=== PATIENT | female | born 1985 | race African-American/Black ===

== ENCOUNTER 2019-06-10 18:19 | Inpatient (IN) | payer MEDICAID, OTHER ==
[~2019-06-10] VITALS: Ht 152.4 cm; Wt 58.7 kg
[2019-06-10] MEDS ORDERED: FAMOTIDINE 20MG/2ML VIAL IV STA (18:47)
[2019-06-10] MEDS ORDERED: SODIUM CHLORIDE 0.9% 1,000 ML IV ONE (18:47)
[2019-06-10] MEDS ORDERED: ONDANSETRON HCL 4MG/2ML INJ IV STA ×2 (18:47→20:22)
[2019-06-10] MEDS ORDERED: KETOROLAC 30MG/ML VIAL IV STA (18:47)
[2019-06-10 19:03] LABS: BASOPHILS % 1.1 % (0.0-2.0); EOSINOPHILS % 1.1 % (0.0-5.0); HEMATOCRIT. 35.2 % (36.0-48.0); HEMOGLOBIN. 11.6 g/dL (12.0-16.0); LYMPHOCYTES % 32.9 % (20.0-50.0); MEAN CORPUSCULAR VOLUME 87.7 fL (81.0-99.0); MEAN PLATELET VOLUME 7.8 fl (7.4-10.4); MONOCYTES % 8.6 % (2.0-8.0); NEUTROPHILS % 56.3 % (40.0-76.0); PLATELET 268 x1000/uL (130-400); RED BLOOD CELL COUNT 4.01 mill/uL (4.2-5.4); RED CELL DISTRIBUTION WIDTH 13.9 % (11.6-14.6)
[2019-06-10 19:12] LABS: CHLORIDE 108 mEq/L (98-107)
[2019-06-10] MEDS ORDERED: ACETAMINOPHEN 325MG TABLET PO ONE (19:15)
[2019-06-10 19:21] LABS: CLARITY URINE CLOUDY (CLEAR); COLOR URINE YELLOW (YELLOW); KETONES URINE 3+ (NEGATIVE); LEUKOCYTE ESTERASE URINE TRACE (NEGATIVE); NITRITE URINE NEGATIVE (NEGATIVE); OCCULT BLOOD URINE 2+ (NEGATIVE); PROTEIN URINE NEGATIVE (NEGATIVE); SPECIFIC GRAVITY URINE 1.015 (1.005-1.030)
[2019-06-10 19:22] LABS: ETHANOL BLOOD < 10 mg/dL
[2019-06-10 19:26] LABS: HCG SCREEN NEGATIVE
[2019-06-10 19:28] LABS: *AMPHETAMINES SCREEN URINE NEGATIVE (NEGATIVE); *BARBITURATES SCREEN URINE NEGATIVE (NEGATIVE)
[2019-06-10 19:29] LABS: *BENZODIAZEPINES SCREEN URINE NEGATIVE (NEGATIVE); *COCAINE SCREEN URINE NEGATIVE (NEGATIVE); METHADONE URINE SCREEN NEGATIVE (NEGATIVE); PHENCYCLIDINE URINE SCREEN NEGATIVE (NEGATIVE)
[2019-06-10 19:34] LABS: CANNABINOID URINE SCREEN PRESUMTIVE POSITIVE (NEGATIVE); OPIATES URINE SCREEN PRESUMTIVE POSITIVE (NEGATIVE)
[2019-06-10] MEDS ORDERED: MORPHINE SULFATE 4 MG/ML CPJ (NOT FOR IM USE) IV STA (20:22)
[2019-06-10] MEDS ORDERED: MORPHINE SULFATE 4 MG/ML CPJ (NOT FOR IM USE) IV NR (20:30)
[2019-06-10] MEDS ORDERED: CEFTRIAXONE 1 G PREMIX 50 ML IV ONE (21:00)
[2019-06-10] MEDS ORDERED: GUAIFENESIN 200MG/10ML SUGAR FREE UDC PO PRN (23:15)
[2019-06-10] MEDS ORDERED: IPRATROPIUM/ALBUTEROL 0.5-3(2.5)MG/3ML NEB INH PRN (23:15)
[2019-06-10] MEDS ORDERED: CLONIDINE 0.1MG TABLET PO PRN (23:15)
[2019-06-10] MEDS ORDERED: MAGNESIUM/ALUMINUM HYDROXIDE/SIMETHICONE 30ML UDC PO PRN (23:15)
[2019-06-10] MEDS ORDERED: DOCUSATE SODIUM 100MG CAPSULE PO PRN (23:15)
[2019-06-10] MEDS ORDERED: NA PHOS,M-B/NA PHOS,DI-BA ENEMA 118ML PR PRN (23:15)
[2019-06-10] MEDS ORDERED: DIPHENHYDRAMINE 50MG/ML VIAL IV PRN (23:15)
[2019-06-10] MEDS ORDERED: LORAZEPAM 2MG/ML CPJ IV PRN (23:15)
[2019-06-10] MEDS ORDERED: HYDRALAZINE 20MG/ML VIAL IV PRN (23:15)
[2019-06-10] MEDS ORDERED: ONDANSETRON HCL 4MG/2ML INJ IV PRN (23:15)
[2019-06-10] MEDS ORDERED: ACETAMINOPHEN 325MG TABLET PO PRN (23:15)
[2019-06-10] MEDS: MORPHINE SULFATE 2 MG/ML CPJ (NOT FOR IM USE) IV PRN (23:41)
[2019-06-11] VITALS (7 sets, daily range): BP systolic 106–132; BP diastolic 66–94
[2019-06-11] MEDS ORDERED: SODIUM CHLORIDE 0.45% 1,000 ML IV SCH (00:32)
[2019-06-11] MEDS ORDERED: HYDRALAZINE 10 MG in DEXTROSE 5% WATER 50 ML IV PRN (02:00)
[2019-06-11] MEDS: MORPHINE SULFATE 2 MG/ML CPJ (NOT FOR IM USE) IV PRN ×2 (03:58→08:15)
[2019-06-11] MEDS ORDERED: SODIUM CHLORIDE 0.9% INJ 3ML FLUSH IVF SCH (06:00)
[2019-06-11 07:19] LABS: BASOPHILS % 1.2 % (0.0-2.0); EOSINOPHILS % 2.9 % (0.0-5.0); HEMATOCRIT. 32.3 % (36.0-48.0); HEMOGLOBIN. 10.7 g/dL (12.0-16.0); MEAN CORPUSCULAR HEMOGLOBIN 29.2 pg (28.0-32.0); MEAN CORPUSCULAR VOLUME 88.1 fL (81.0-99.0); MEAN PLATELET VOLUME 8.6 fl (7.4-10.4); NEUTROPHILS % 38.9 % (40.0-76.0); PLATELET 246 x1000/uL (130-400); RED BLOOD CELL COUNT 3.66 mill/uL (4.2-5.4); RED CELL DISTRIBUTION WIDTH 14.1 % (11.6-14.6)
[2019-06-11 07:35] LABS: CHLORIDE 107 mEq/L (98-107)
[2019-06-11] MEDS ORDERED: CEFTRIAXONE 1 G PREMIX 50 ML IV SCH (22:00)
== END 2019-06-11 12:40 | disposition home or self-care (01) | DRG 724 ==
LOC: ER 18:28 → 6EST 21:30 → ENRESERV 23:25
PROVIDERS: ADMIT Internal Medicine; ATTEND Internal Medicine
DX: A59.9 Trichomoniasis, unspecified (principal); I10 Essential (primary) hypertension; N20.0 Calculus of kidney; N39.0 Urinary tract infection, site not specified; Z87.442 Personal history of urinary calculi; Z98.891 History of uterine scar from previous surgery; Z90.710 Acquired absence of both cervix and uterus
CPT/HCPCS: 36415; 74176; 76705; 80305; 80320; 81003; 84703; 96374; 96375; 99285; J0696; J1885; J2270; J2405; J3490; J7030; G0480

== ENCOUNTER 2020-03-31 01:53 | Emergency (ER) | payer MEDICAID, OTHER ==
[~2020-03-31] VITALS: Ht 157.5 cm; Wt 59.0 kg
[2020-03-31] MEDS ORDERED: ONDANSETRON HCL 4MG/2ML INJ IV STA (02:30)
[2020-03-31] MEDS ORDERED: KETOROLAC 30MG/ML VIAL IV STA (02:30)
[2020-03-31] MEDS ORDERED: SODIUM CHLORIDE 0.9% 1,000 ML IV ONE (02:30)
[2020-03-31 03:01] LABS: BASOPHILS % 0.8 % (0.0-2.0); EOSINOPHILS % 1.4 % (0.0-5.0); HEMATOCRIT. 36.6 % (36.0-48.0); HEMOGLOBIN. 12.1 g/dL (12.0-16.0); MEAN CORPUSCULAR HEMOGLOBIN 29.3 pg (28.0-32.0); MEAN CORPUSCULAR VOLUME 88.7 fL (81.0-99.0); MEAN PLATELET VOLUME 8.5 fl (7.4-10.4); MONOCYTES % 9.8 % (2.0-8.0); PLATELET 278 x1000/uL (130-400); RED BLOOD CELL COUNT 4.12 mill/uL (4.2-5.4); RED CELL DISTRIBUTION WIDTH 14.3 % (11.6-14.6)
[2020-03-31 03:13] LABS: HCG SCREEN NEGATIVE
[2020-03-31 03:15] LABS: CHLORIDE 107 mEq/L (98-107)
[2020-03-31 03:26] LABS: CLARITY URINE CLEAR (CLEAR); COLOR URINE YELLOW (YELLOW); KETONES URINE 3+ (NEGATIVE); LEUKOCYTE ESTERASE URINE NEGATIVE (NEGATIVE); NITRITE URINE NEGATIVE (NEGATIVE); OCCULT BLOOD URINE 2+ (NEGATIVE); PROTEIN URINE NEGATIVE (NEGATIVE); SPECIFIC GRAVITY URINE 1.015 (1.005-1.030)
[2020-03-31] MEDS ORDERED: MAGNESIUM/ALUMINUM HYDROXIDE/SIMETHICONE 30ML UDC PO ONE (03:30)
[2020-03-31] MEDS ORDERED: VISCOUS LIDOCAINE 2% 15 ML UDC PO ONE (03:30)
[2020-03-31 04:51] VITALS: BP 144/86
[2020-03-31 10:36] LABS: *BARBITURATES SCREEN URINE NEGATIVE (NEGATIVE); *BENZODIAZEPINES SCREEN URINE NEGATIVE (NEGATIVE); *COCAINE SCREEN URINE NEGATIVE (NEGATIVE)
[2020-03-31 10:37] LABS: *AMPHETAMINES SCREEN URINE NEGATIVE (NEGATIVE); METHADONE URINE SCREEN NEGATIVE (NEGATIVE); PHENCYCLIDINE URINE SCREEN NEGATIVE (NEGATIVE)
[2020-03-31 10:41] LABS: CANNABINOID URINE SCREEN PRESUMTIVE POSITIVE (NEGATIVE); OPIATES URINE SCREEN PRESUMTIVE POSITIVE (NEGATIVE)
== END 2020-03-31 05:09 | disposition home or self-care (01) ==
LOC: ER 01:53
DX: R10.13 Epigastric pain (principal); R11.2 Nausea with vomiting, unspecified; I10 Essential (primary) hypertension; Z98.890 Other specified postprocedural states
CPT/HCPCS: 36415; 74021; 80053; 80305; 81003; 83690; 84484; 84703; 85025; 93005; 96361; 96374; 96375; 99285; J1885; J2405; J7030

== ENCOUNTER 2020-03-31 05:37 | Emergency (ER) | payer MEDICAID ==
[~2020-03-31] VITALS: Ht 154.9 cm; Wt 59.0 kg
[2020-03-31] MEDS ORDERED: ACETAMINOPHEN 325MG TABLET PO ONE (08:30)
[2020-03-31] MEDS ORDERED: ONDANSETRON 4MG ODT PO ONE (09:15)
[2020-03-31 09:20] VITALS: BP 142/89
== END 2020-03-31 09:59 | disposition home or self-care (01) ==
LOC: ER 05:37
DX: N83.209 Unspecified ovarian cyst, unspecified side (principal); R10.13 Epigastric pain; I10 Essential (primary) hypertension; Z98.890 Other specified postprocedural states
CPT/HCPCS: 74176; 99284; Q0162

== ENCOUNTER 2020-04-01 01:50 | Emergency (ER) | payer MEDICAID ==
[~2020-04-01] VITALS: Ht 165.1 cm; Wt 59.0 kg
[2020-04-01] MEDS ORDERED: DICYCLOMINE HCL 10MG/ML 2ML AMP IM ONE (02:00)
[2020-04-01 03:16] LABS: HEMATOCRIT 35.1 % (36.0-48.0); HEMOGLOBIN 11.6 g/dL (12.0-16.0); MEAN CORPUSCULAR HEMOGLOBIN 29.3 pg (28.0-32.0); MEAN CORPUSCULAR VOLUME 88.7 fL (81.0-99.0); PLATELET 242 x1000/uL (130-400); RED BLOOD CELL COUNT 3.96 mill/uL (4.2-5.4); RED CELL DISTRIBUTION WIDTH 14.2 % (11.6-14.6)
[2020-04-01 03:41] LABS: CHLORIDE 108 mEq/L (98-107)
[2020-04-01 04:42] VITALS: BP 112/71
== END 2020-04-01 04:44 | disposition home or self-care (01) ==
LOC: ER 01:50
DX: R10.10 Upper abdominal pain, unspecified (principal); G89.29 Other chronic pain; Z76.5 Malingerer [conscious simulation]
CPT/HCPCS: 36415; 80053; 83690; 85027; 96372; 99283; J0500

== ENCOUNTER 2025-01-06 23:23 | Emergency (ER) | payer MEDICAID ==
[~2025-01-06] VITALS: Ht 165.1 cm; Wt 59.0 kg
[2025-01-06 23:27] VITALS: TEMP 37.2; O2SAT 98
[2025-01-07 00:06] LABS: CHLORIDE 107 mEq/L (98-107); POTASSIUM 4.4 mEq/L (3.5-5.1); SODIUM 141 mEq/L (136-145)
[2025-01-07 00:07] LABS: CARBON DIOXIDE 26 mEq/L (21-32)
[2025-01-07 00:08] LABS: CALCIUM 10.2 mg/dL (8.7-10.4)
[2025-01-07 00:11] LABS: PARTIAL THROMBOPLASTIN TIME 28.2 sec (23.4-31.0); PROTHROMBIN TIME 10.6 sec (9.6-11.0)
[2025-01-07 00:12] LABS: CREATININE 0.7 mg/dL (0.6-1.0); GLUCOSE 125 mg/dL (70-105); UREA NITROGEN BLOOD 10 mg/dL (9-23)
[2025-01-07] MEDS: SODIUM CHLORIDE 0.9% 1,000 ML IV ONE (00:23)
[2025-01-07] MEDS: FENTANYL CITRATE/PF 50MCG/ML 2ML VIAL IV ONE (00:23)
[2025-01-07] MEDS: ONDANSETRON HCL 4MG/2ML INJ IV ONE (00:24)
[2025-01-07 00:25] LABS: BASOPHILS % 1.2 % (0.0-2.0); EOSINOPHILS % 3.3 % (0.0-5.0); HEMATOCRIT. 44.4 % (36.0-48.0); HEMOGLOBIN. 14.4 g/dL (12.0-16.0); LYMPHOCYTES % 41.4 % (20.0-50.0); MEAN CORPUSCULAR HEMOGLOBIN 28.5 pg (28.0-32.0); MEAN CORPUSCULAR HGB CONC 32.3 g/dL (31.0-37.0); MEAN PLATELET VOLUME 8.1 fl (7.4-10.4); MONOCYTES % 8.8 % (2.0-8.0); NEUTROPHILS % 45.3 % (40.0-76.0); PLATELET 443 x1000/uL (130-400); RED BLOOD CELL COUNT 5.05 mill/uL (4.2-5.4); RED CELL DISTRIBUTION WIDTH 15.3 % (11.6-14.6); WHITE BLOOD COUNT 6.5 x1000/uL (4.5-11.0)
[2025-01-07] MEDS: MORPHINE SULFATE 4 MG/ML INJ (FOR IV/IM USE) IV ONE ×2 (00:30→04:53)
[2025-01-07 00:59] LABS: *AMPHETAMINES SCREEN URINE NEGATIVE (NEGATIVE); *BARBITURATES SCREEN URINE NEGATIVE (NEGATIVE); *BENZODIAZEPINES SCREEN URINE NEGATIVE (NEGATIVE); *COCAINE SCREEN URINE NEGATIVE (NEGATIVE); CANNABINOID URINE SCREEN PRESUMPTIVE POSITIVE (NEGATIVE); ECSTASY MDMA SCREEN URINE NEGATIVE (NEGATIVE); METHADONE URINE SCREEN NEGATIVE (NEGATIVE); OPIATES URINE SCREEN NEGATIVE (NEGATIVE); PHENCYCLIDINE URINE SCREEN NEGATIVE (NEGATIVE)
[2025-01-07] MEDS: DIPHENHYDRAMINE 50MG/ML VIAL IV ONE (01:00)
[2025-01-07 01:01] LABS: ETHANOL BLOOD < 10 mg/dL (<10); TROPONIN I HIGH SENSITIVITY < 4 ng/L (3.0-34)
[2025-01-07 01:32] LABS: HCG SCREEN NEGATIVE
[2025-01-07 01:49] LABS: CLARITY URINE TURBID (CLEAR); COLOR URINE YELLOW (YELLOW); GLUCOSE URINE NEGATIVE (NEGATIVE); KETONES URINE NEGATIVE (NEGATIVE); LEUKOCYTE ESTERASE URINE 3+ (NEGATIVE); NITRITE URINE NEGATIVE (NEGATIVE); OCCULT BLOOD URINE 2+ (NEGATIVE); PH URINE 5.5 (4.5-8.0); PROTEIN URINE 2+ (NEGATIVE); SPECIFIC GRAVITY URINE 1.015 (1.005-1.030); UROBILINOGEN URINE 0.2 E.U./dL (0.2-1.0)
[2025-01-07] MEDS: MORPHINE SULFATE 4 MG/ML INJ (FOR IV/IM USE) IM ONE (02:34)
[2025-01-07 02:36] VITALS: O2SAT 100
[2025-01-07] MEDS: DIPHENHYDRAMINE 50MG/ML VIAL IV NR (02:50)
[2025-01-07 03:18] LABS: WBC URINE TNTC /hpf (0-2)
[2025-01-07 03:20] LABS: BACTERIA URINE 3+; RBC URINE 25-50 /hpf (0-2); SQUAMOUS EPITHELIAL CELL URINE 1+ /lpf (RARE/1+)
[2025-01-07 04:53] VITALS: BP 145/102; PULSE 77; RESP 24
[2025-01-07] MEDS: CEFTRIAXONE 2GM/50ML 50 ML IV NR (05:40)
[2025-01-07] MEDS ORDERED: MORPHINE SULFATE 4 MG/ML INJ (FOR IV/IM USE) IV PRN (06:00)
[2025-01-07] MEDS ORDERED: ONDANSETRON HCL 4MG/2ML INJ IV PRN (06:00)
[2025-01-07] MEDS ORDERED: ACETAMINOPHEN 325MG TABLET PO PRN ×2 (06:00)
[2025-01-07] MEDS ORDERED: KETOROLAC 30MG/ML VIAL IV PRN (06:00)
[2025-01-07] MEDS ORDERED: CLONIDINE 0.1MG TABLET PO PRN (06:00)
[2025-01-07] MEDS ORDERED: TRAMADOL 50MG TABLET PO PRN (06:00)
[2025-01-07] MEDS ORDERED: DIPHENHYDRAMINE 50MG/ML VIAL IV PRN (06:00)
[2025-01-07] MEDS ORDERED: NA PHOS,M-B/NA PHOS,DI-BA ENEMA 118ML PR PRN (06:00)
[2025-01-07] MEDS ORDERED: DEXT 5%/0.45% NACL 1000ML 1,000 ML IV SCH (06:00)
[2025-01-07] MEDS ORDERED: MAGNESIUM/ALUMINUM HYDROXIDE/SIMETHICONE 30ML UDC PO PRN (06:00)
[2025-01-07] MEDS ORDERED: NALOXONE HCL 0.4MG/ML VIAL IV PRN (07:00)
[2025-01-08] MEDS ORDERED: CEFTRIAXONE 1GM/50ML 50 ML IV SCH (06:00)
== END 2025-01-07 05:53 | disposition left against medical advice (07) ==
LOC: ER 23:23 → EDBEDREQ 01-07 02:30 → EDBEDREQDT 01-07 02:30 → EDBEDREQTM 01-07 02:30 → ER 01-07 05:53
DX: D57.00 Hb-SS disease with crisis, unspecified (principal); N39.0 Urinary tract infection, site not specified; R07.9 Chest pain, unspecified; I10 Essential (primary) hypertension; Z79.899 Other long term (current) drug therapy
CPT/HCPCS: 80305; 80048; 81003; 80320; 84703; 83880; 85025; 85044; 85610; 85730; 87086; 84484; 36415; 71045; 93005; 99285; 87186; 87077; 96361; 96372; 96374; 96375; J7030; Z7610; J3010; J0696; J1200; J2405; J2270; A4606; G0480

== ENCOUNTER 2025-04-28 23:39 | Emergency (ER) | payer MEDICAID ==
[~2025-04-28] VITALS: Ht 152.4 cm; Wt 55.0 kg
[2025-04-28 23:53] VITALS: BP 128/77; PULSE 78; RESP 16; TEMP 36.9; O2SAT 98
[2025-04-29] MEDS ORDERED: SODIUM CHLORIDE 0.9% 1,000 ML IV ONE (00:15)
[2025-04-29] MEDS ORDERED: KETOROLAC 15MG/ML VIAL IV ONE (00:15)
== END 2025-04-29 01:55 | disposition left against medical advice (07) ==
LOC: ER 23:54
DX: M79.18 Myalgia, other site (principal); R07.89 Other chest pain; D57.1 Sickle-cell disease without crisis; I10 Essential (primary) hypertension
CPT/HCPCS: 99283; 71045; J1885; J7030; Z7610 ×2

== ENCOUNTER 2025-05-12 03:34 | Inpatient (IN) | payer MEDICAID ==
[~2025-05-12] VITALS: Ht 152.4 cm; Wt 57.0 kg
[2025-05-12 03:39] VITALS: O2SAT 100
[2025-05-12] MEDS ORDERED: KETOROLAC 15MG/ML VIAL IV ONE (04:15)
[2025-05-12] MEDS ORDERED: ACETAMINOPHEN 10MG/ML SYR IV ONE (05:00)
[2025-05-12] MEDS: SODIUM CHLORIDE 0.9% 1,000 ML IV ONE (05:02)
[2025-05-12] MEDS: KETOROLAC 15MG/ML VIAL IM ONE (05:02)
[2025-05-12] MEDS: DIPHENHYDRAMINE 25MG CAPSULE PO ONE (05:04)
[2025-05-12] MEDS: ACETAMINOPHEN 1000MG/100ML IV NR (05:13)
[2025-05-12 05:20] LABS: BASOPHILS % 1.0 % (0.0-2.0); EOSINOPHILS % 3.2 % (0.0-5.0); HEMATOCRIT. 46.2 % (36.0-48.0); HEMOGLOBIN. 14.9 g/dL (12.0-16.0); LYMPHOCYTES % 41.8 % (20.0-50.0); MEAN PLATELET VOLUME 8.7 fl (7.4-10.4); MONOCYTES % 5.9 % (2.0-8.0); NEUTROPHILS % 48.1 % (40.0-76.0); PLATELET 318 x1000/uL (130-400); RED BLOOD CELL COUNT 5.25 mill/uL (4.2-5.4); RED CELL DISTRIBUTION WIDTH 15.3 % (11.6-14.6)
[2025-05-12 05:31] LABS: CREATININE 0.9 mg/dL (0.6-1.0)
[2025-05-12 05:32] LABS: UREA NITROGEN BLOOD 17 mg/dL (9-23)
[2025-05-12 08:24] VITALS: BP 109/72; PULSE 74; RESP 17; TEMP 36.6; O2SAT 100
[2025-05-12] MEDS ORDERED: DOCUSATE SODIUM 100MG CAPSULE PO PRN (09:45)
[2025-05-12] MEDS ORDERED: IPRATROPIUM/ALBUTEROL 0.5-3(2.5)MG/3ML NEB HHN PRN (09:45)
[2025-05-12] MEDS ORDERED: ACETAMINOPHEN 325MG TABLET PO PRN ×2 (09:45)
[2025-05-12] MEDS ORDERED: ONDANSETRON HCL 4MG/2ML INJ IV PRN (09:45)
[2025-05-12] MEDS ORDERED: CLONIDINE 0.1MG TABLET PO PRN (09:45)
[2025-05-12] MEDS: KETOROLAC 15MG/ML VIAL IV PRN (10:01)
[2025-05-12] MEDS ORDERED: HYDROCODONE/ACETAMINOPHEN 5/325MG TABLET PO SCH (11:00)
[2025-05-13] MEDS ORDERED: PANTOPRAZOLE SODIUM 40 MG/VIAL IV SCH (09:00)
== END 2025-05-12 11:35 | disposition left against medical advice (07) | DRG 662 ==
LOC: ER 03:39 → 8WST 05:21 → EDBEDREQ 05:23 → EDBEDREQTM 05:23 → ENRESERV 06:46
PROVIDERS: ADMIT Hospitalist; ATTEND Hospitalist
DX: D57.00 Hb-SS disease with crisis, unspecified (principal); I10 Essential (primary) hypertension; Z53.29 Procedure and treatment not carried out because of patient's decision for other reasons; Z59.00 Homelessness unspecified; Z82.49 Family history of ischemic heart disease and other diseases of the circulatory system; Z83.2 Family history of diseases of the blood and blood-forming organs and certain disorders involving the immune mechanism
CPT/HCPCS: 36415; 71045; 80048; 85025; 85044; 99285; J1885; J7030; Q0163; J0131